=== PATIENT | female | born 1980 | race Caucasian/White ===

== ENCOUNTER 2016-10-15 21:37 | Emergency (ER) | payer OTHER ==
[~2016-10-15] VITALS: Ht 165.1 cm; Wt 62.3 kg
[~2016-10-15 21:37] MED LIST: ATI.5 PO; HYDROCODON-ACETAMINOPHN 10-325
[2016-10-15 21:50] VITALS: BP 124/76
--- NOTE | 2016-10-15 21:57 | NUR ---
TO ER BED 4
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
--- NOTE | 2016-10-15 22:15 | NUR ---
Patient being evaluated by physician DR CRUZ at bedside.
[2016-10-15] MEDS ORDERED: HYDROmorphone 1 MG/ML AMP IM ONE (22:20)
[2016-10-15 22:59] VITALS: BP 122/71
--- NOTE | 2016-10-15 23:01 | NUR ---
Patient discharged with v/s stable. Written and verbal after care instructions given and explained. Patient alert, oriented and verbalized understanding of instructions. Ambulatory with steady gait. All questions addressed prior to discharge. ID band removed. Patient advised to follow up with PMD. Rx of norco 5mg-325mg q4hrs/prn given. Patient educated on indication of medication including possible reaction and side effects. Opportunity to ask questions provided and answered.
== END 2016-10-15 23:00 | disposition home or self-care (01) ==
LOC: MED 21:37
DX: K08.199 Complete loss of teeth due to other specified cause, unspecified class (principal); R03.0 Elevated blood-pressure reading, without diagnosis of hypertension; K21.9 Gastro-esophageal reflux disease without esophagitis
CPT/HCPCS: 96372; 99283; J1170

== ENCOUNTER 2017-06-28 04:16 | Emergency (ER) | payer OTHER ==
[~2017-06-28] VITALS: Ht 157.5 cm; Wt 59.6 kg
[2017-06-28 04:20] VITALS: BP 117/85
--- NOTE | 2017-06-28 04:30 | NUR ---
PATIENT TO ER BED 3.
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
[2017-06-28 05:30] VITALS: BP 117/85
--- NOTE | 2017-06-28 05:30 | NUR ---
Patient discharged with v/s stable. Written and verbal after care instructions given and explained. Patient alert, oriented and verbalized understanding of instructions. Ambulatory with steady gait. All questions addressed prior to discharge. ID band removed. Patient advised to follow up with PMD. Rx of Prednisone, Benadryl given. Patient educated on indication of medication including possible reaction and side effects. Opportunity to ask questions provided and answered.
== END 2017-06-28 05:30 | disposition home or self-care (01) ==
LOC: MED 04:16
DX: R21 Rash and other nonspecific skin eruption (principal); K21.9 Gastro-esophageal reflux disease without esophagitis
CPT/HCPCS: 99283

== ENCOUNTER 2018-04-24 19:50 | Emergency (ER) | payer OTHER ==
[~2018-04-24] VITALS: Ht 157.5 cm; Wt 54.5 kg
[2018-04-24 20:20] VITALS: BP 130/87
--- NOTE | 2018-04-24 20:28 | NUR ---
PT AMBUALTED BACK TO THE LOBBY
--- NOTE | 2018-04-24 20:49 | NUR ---
Patient ambulated to bed 4. RN evaluating patient at bedside.
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
[2018-04-24] MEDS ORDERED: KETOROLAC 60 MG/2 ML VIAL IM ONE (21:45)
--- NOTE | 2018-04-24 22:41 | NUR ---
PT RESTING IN BED WITH BLANKET OVER FACE. PT STATES THAT SHE NO LONGER HAS ANY BODY PAIN BUT HER HEADACHE IS STILL BURNING AT 7/10. PT SPEECH IS CLEAR AND APPROPRIATE, AAOX4. VSS. WILL CONTINUE TO MONITOR.
--- NOTE | 2018-04-24 22:52 | NUR ---
Dr. Cordoba evaluating patient at bedside.
[2018-04-24 23:10] VITALS: BP 94/56
--- NOTE | 2018-04-24 23:10 | NUR ---
Patient discharged with v/s stable. Written and verbal after care instructions given and explained. Patient alert, oriented and verbalized understanding of instructions. Ambulatory with steady gait. All questions addressed prior to discharge. ID band removed. Patient advised to follow up with PMD. Rx of MOTRIN, ZOFRAN, NORCO given. Patient educated on indication of medication including possible reaction and side effects. Opportunity to ask questions provided and answered.
== END 2018-04-24 23:10 | disposition home or self-care (01) ==
LOC: MED 19:50
DX: R51 Headache (principal); M54.2 Cervicalgia; K21.9 Gastro-esophageal reflux disease without esophagitis; Z79.891 Long term (current) use of opiate analgesic; Z79.899 Other long term (current) drug therapy; V89.2XXA Person injured in unspecified motor-vehicle accident, traffic, initial encounter; Y93.89 Activity, other specified; Y92.410 Unspecified street and highway as the place of occurrence of the external cause; Y99.8 Other external cause status
CPT/HCPCS: 96372; 99283; J1885

== ENCOUNTER 2023-11-07 00:10 | Emergency (ER) | payer OTHER ==
[~2023-11-07] VITALS: Ht 157.5 cm; Wt 52.2 kg
[2023-11-07 00:17] VITALS: BP 126/66; PULSE 70; RESP 16; TEMP 97.3; O2SAT 99
[2023-11-07 01:51] VITALS: BP 126/66; PULSE 70; RESP 16; TEMP 97.3; O2SAT 99
[2023-11-07] MEDS ORDERED: TOBR5SOL38 OP (02:31)
[2023-11-07] MEDS ORDERED: NAPR-1704 PO (02:31)
[2023-11-07] MEDS ORDERED: TETRACAINE HCL/PF 0.5% OPTH 4 ML BTL ONE (02:32)
[2023-11-07] MEDS: TETRACAINE HCL/PF 0.5% OPTH 4 ML BTL OP ONE (02:35)
== END 2023-11-07 02:38 | disposition home or self-care (01) ==
LOC: MED 00:10
DX: H10.9 Unspecified conjunctivitis (principal); K21.9 Gastro-esophageal reflux disease without esophagitis; Z79.899 Other long term (current) drug therapy
CPT/HCPCS: 99283